=== PATIENT | male | born 1995 | race Caucasian/White ===

== ENCOUNTER 2018-09-22 14:54 | Emergency (ER) | payer SELFPAY ==
[~2018-09-22] VITALS: Ht 188 cm; Wt 86.4 kg
[~2018-09-22 14:54] MED LIST: KEPPRA 500MG500 MG PO
[2018-09-22 14:56] VITALS: TEMP 98.1
[2018-09-22] MEDS ORDERED: KEPPRA 500MG500 MG PO (15:00)
[2018-09-22 15:12] LABS: BASO % 0.3 % (0.0-2.0); EOS # 0.2 (0.0-0.7); EOS % 1.3 % (0-4.0); GRAN # 8.8 (1.4-6.5); GRAN % 67.5 % (42.2-75.2); HEMATOCRIT 47.7 % (42.0-52.0); HEMOGLOBIN 16.2 g/dl (13.5-18.0); LYMPH # 3.3 (1.2-3.4); LYMPH % 25.5 % (20.0-51.0); MEAN CELL VOLUME 90 fl (80.0-100.0); MEAN CORPUSCULAR HEMOGLOBIN 31 pg (27.0-31.0); MEAN CORPUSCULAR HGB CONC 34 g/dl (33.0-37.0); MEAN PLATELET VOLUME 10.1 fl (7.4-10.4); MONO # 0.7 (0.1-0.6); MONO % 5.1 % (1.7-9.3); PLATELET COUNT 220 K/mm3 (130-400); RED BLOOD COUNT 5.28 M/mm3 (4.20-5.60); REDCELL DISTRIBUTION WIDTH-CV 12.4 % (11.5-14.5)
[2018-09-22 15:24] LABS: ALANINE AMINOTRANSFERASE 19 U/L (21-72); ALBUMIN 4.8 gm/dL (3.5-5.0); ALKALINE PHOSPHATASE 55 U/L (50-136); ANION GAP 17 mmol/L (7-16); AST,SGOT 28 U/L (15-37); BILIRUBIN,TOTAL 0.4 mg/dL (0.0-1.0); BLOOD UREA NITROGEN 16 mg/dL (9-20); CALCIUM 9.7 mg/dL (8.4-10.2); CARBON DIOXIDE 18 mmol/L (22-30); CHLORIDE 106 mmol/L (98-107); CREATININE, serum 0.87 mg/dL (0.66-1.25); GLUCOSE 150 mg/dL (74-106); SODIUM 141 mmol/L (137-145); TOTAL PROTEIN 8.4 gm/dL (6.4-8.2)
[2018-09-22 15:28] LABS: C-REACTIVE PROTEIN < 0.5 mg/dL (0.0-0.9)
[2018-09-22 16:15] VITALS: BP 119/77; PULSE 88
== END 2018-09-22 16:15 | disposition home or self-care (01) ==
LOC: COL.ER 14:54
PROVIDERS: Emergency Medicine
DX: G40.909 Epilepsy, unspecified, not intractable, without status epilepticus (principal)
CPT/HCPCS: J1953; J2060; J7030